=== PATIENT | female | born 1970 | race Caucasian/White ===

== ENCOUNTER 2018-09-28 16:21 | Emergency (ER) | payer BC ==
[2018-09-28] MEDS ORDERED: KETOROLAC TROMETHAMINE 30 MG/ML SOL IV ONE (16:37)
[2018-09-28] MEDS ORDERED: DIPHENHYDRAMINE 50 MG/ML SOL IV ONE (16:37)
[2018-09-28] MEDS ORDERED: PROCHLORPERAZINE EDISYLATE 5 MG/ML SOL IV ONE (16:37)
[2018-09-28] MEDS ORDERED: SODIUM CHLORIDE 0.9% 1000ML 1,000 ML IV ONE (16:38)
[2018-09-28 16:39] VITALS: RESP 20; TEMP 96.4; O2SAT 100
[2018-09-28] MEDS ORDERED: PROCHLORPERAZINE EDISYLATE 5 MG/ML SOL ONE (16:41)
[2018-09-28] MEDS ORDERED: KETOROLAC TROMETHAMINE 30 MG/ML SOL ONE (16:41)
[2018-09-28] MEDS ORDERED: DIPHENHYDRAMINE 50 MG/ML SOL ONE (16:42)
[2018-09-28 18:14] VITALS: BP 146/91; PULSE 79
== END 2018-09-28 18:21 | disposition home or self-care (01) ==
LOC: ED 16:21
DX: G43.909 Migraine, unspecified, not intractable, without status migrainosus (principal)
CPT/HCPCS: 96365; 96374; 96375; 99283; 99284; J0780; J1200; J1885

== ENCOUNTER 2018-10-01 20:48 | Emergency (ER) | payer BC ==
[2018-10-01] MEDS ORDERED: ONDANSETRON HCL 4 MG/2 ML SOL ONE ×2 (20:50→22:24)
[2018-10-01] MEDS ORDERED: SODIUM CHLORIDE 0.9% 1000ML 1,000 ML IV ONE ×2 (21:00→21:02)
[2018-10-01] MEDS ORDERED: ONDANSETRON HCL 4 MG/2 ML SOL IV ONE ×3 (21:00→22:22)
[2018-10-01] MEDS ORDERED: HYDROMORPHONE HCL 2 MG/ML SOL IV ONE ×2 (21:02→22:22)
[2018-10-01] MEDS ORDERED: HYDROMORPHONE 1 MG/ML SYRINGE IV ONE (21:03)
[2018-10-01] MEDS ORDERED: HYDROMORPHONE 1 MG/ML SYRINGE ONE ×2 (21:05→22:23)
[2018-10-01] MEDS ORDERED: DIAZEPAM 5 MG TAB PO ONE (21:48)
[2018-10-01] MEDS ORDERED: DIAZEPAM 5 MG TAB ONE (22:12)
[2018-10-01 22:34] VITALS: RESP 18
[2018-10-01 23:03] VITALS: BP 140/90; PULSE 80; TEMP 98; O2SAT 98
== END 2018-10-01 22:55 | disposition home or self-care (01) ==
LOC: ED 20:48
DX: R51 Headache (principal)
CPT/HCPCS: 96365; 96374; 96375; 99282; 99285; J2405; A9270-GY; J1170

== ENCOUNTER 2019-03-18 09:16 | Day surgery (SDC) | payer BC ==
[~2019-03-18 09:16] MED LIST: LIDOCAINE HCL 1% MPF 30 SOL ONE; PROPOFOL 500 MG/50 ML EMU IV ONE
[2019-03-18 12:05] VITALS: TEMP 97.8
[2019-03-18 12:06] VITALS: O2SAT 100
[2019-03-18 12:08] VITALS: BP 129/82; PULSE 77; RESP 14
== END 2019-03-18 11:10 | disposition home or self-care (01) ==
LOC: SURG 09:16
PROVIDERS: ATTEND Surgery
DX: Z12.11 Encounter for screening for malignant neoplasm of colon (principal); Z80.0 Family history of malignant neoplasm of digestive organs; Z83.71 Family history of colonic polyps
CPT/HCPCS: J2001; J2704